=== PATIENT | male | born 1985 | race Caucasian/White ===

== ENCOUNTER 2021-09-14 07:05 | Day surgery (SDC) | payer OTHER ==
[2021-09-13 14:02] LABS: Absolute Lymphocytes (CBC) 2.4 K/uL (0.7-4.9); Hematocrit 40.9 % (39.6-49.0); Lymphocytes % 39.1 % (15.3-44.8); MPV 7.1 fL (7.6-11.3); RBC Red Blood Cell Count 4.91 M/uL (4.33-5.43)
[2021-09-13 14:12] LABS: BUN Blood Urea Nitrogen 10 mg/dL (7-18); Bicarbonate 27 mmol/L (21-32); Glucose Level 118 mg/dL (74-106); Potassium 3.4 mmol/L (3.5-5.1); Sodium Level 140 mmol/L (136-145)
[2021-09-14] MEDS ORDERED: CEFAZOLIN SODIUM 1 GM/VIAL ONE (07:35)
[2021-09-14] MEDS ORDERED: FENTANYL CITR 100 MCG/2 ML ONE (08:10)
[2021-09-14] MEDS ORDERED: propofoL 200 MG/20 ML VIAL IV ONE (08:11)
[2021-09-14] MEDS ORDERED: LIDOCAINE 1% MPF 5 ML VIAL ONE (08:12)
[2021-09-14] MEDS ORDERED: MIDAZOLAM HCL 2 MG/2 ML INJ ONE (08:12)
[2021-09-14] MEDS ORDERED: ROCURONIUM 50 MG/5 ML VIAL IV ONE (08:13)
[2021-09-14] MEDS ORDERED: ONDANSETRON 4 MG/2 ML VIAL ONE ×2 (08:13→08:54)
[2021-09-14] MEDS ORDERED: BUPIVACAINE 0.5% PF 10 ML VIAL ONE ×2 (08:26→08:55)
[2021-09-14] MEDS: Ringers Lactate 1,000 ML IV ONE ×2 (08:31→09:02)
[2021-09-14] MEDS ORDERED: dexAMETHasone 10 MG/ML VIAL ONE (08:54)
[2021-09-14] MEDS ORDERED: KETOROLAC 30 MG/ML INJ ONE (08:54)
[2021-09-14] MEDS ORDERED: Ringers Lactate 1,000 ML IV ONE (09:11)
--- NOTE | 2021-09-14 09:13 | P.BOP ---
Preoperative diagnosis: incarcerated tender umbilical hernia Postoperative diagnosis: same Primary procedure: Laparoscopic repair of incarcerated tender umbilical hernia with mesh Counterperson: NICHOLAS OLIVAS (AGILE TESTER) Estimated blood loss: <10cc Specimen: sac Findings: as above Anesthesia: General Implants: ventralex Fluids & blood products: no blood Transferred to: Recovery Room Condition: Good
[2021-09-14] MEDS ORDERED: NEOSTIGMINE 1 MG/ML -5 ML ONE (09:17)
[2021-09-14] MEDS ORDERED: GLYCOPYRROLATE 0.2 MG/ML SYR ONE (09:17)
[2021-09-14] MEDS: HYDROMORPHONE HCL 1 MG/ML INJ ONE ×2 (09:55→10:02)
[2021-09-14] MEDS ORDERED: HYDROCODONE/APAP 5/325 MG TAB ONE (10:44)
[2021-09-14 12:35] VITALS: BP 116/77
[2021-09-14 12:37] VITALS: TEMP 97.1; O2SAT 97
--- NOTE | 2021-09-14 21:36 | OP ---
Date of Procedure: 09/14/2021 Surgeon: Julius Cook MD Press Worker Helper: Lauren Perez. Preoperative Diagnosis: Incarcerated tender umbilical hernia. Postoperative Diagnosis: Incarcerated tender umbilical hernia. Procedure: Laparoscopic repair of incarcerated tender umbilical hernia with mesh. Estimated Blood Loss: Less than 10 mL. Specimen: Hernia sac. Anesthesia: General plus local. Implant: Ventralex mesh. Complications: None. Findings: The patient has incarcerated umbilical hernia with omentum. Indication: This is a case of a -[id number]-[id number] patient, who comes to us with a tender umbilical hernia. The benefits, alternatives, and risks of repair were fully explained, which include, but no t limited to, infection, bleeding, damage to adjacent structures, anesthesia complication, recurrence , GA, and even . He also understands this may not relieve his symptoms. He might need more chicho n one surgical intervention. He also understands we may use mesh in that region with pros and cons o f mesh discussed with the patient. All the questions answered to his satisfaction. He signed a cons ent. The patient understands the importance of no heavy lifting and also losing some weight. Description Of Procedure: The patient was brought to the operating room and placed in supine positio n. Anesthesia was done without complication. Abdominal area was prepped and draped in sterile fashi on. Local anesthesia was applied after time-out followed by incision in the periumbilical region. I ncision was carried down until we find the hernia sac. We were trying to use the hernia sac to relea se some of the incarcerated omentum. We were releasing some adhesions from the hernia sac and we wer e able to reduce the omentum after fully inspecting to make sure there was no necrosis and make sure there was no bleeding. Hernia sac was removed. We took advantage of that area to put a Markus troca r coming through it. That allowed me to obtain pneumoperitoneum. Then, we put 5 mm trocars in each side of the abdomen, changed the camera to a 5 mm, and then we put the cameras through the 5 mm troca r to see the midline incision. We noted the fascial edges reinforcement, so we put probably #1 a fig [id number] fashion multiple times. We also noticed that in order for this to be less chance of rec urrence due to the fascia condition, I believe he will benefit from an intraperitoneal mesh, so we pu t a Ventralex mesh in that area through the umbilical incision, bring the straps up, and through a 5 mm trocar, we captured and secured the mesh in place circumferentially to diminish any chance of any bowel trying to sneak in. Once we have that, we proceeded to then tie the stitches on the periumbili ana region and we noticed we have a good air and water seal. We looked at the area of the mesh once again, looks nice and flat against the peritoneum, once again circumferential multiple capture a fixa tion device. At that moment, I proceeded then to deflate pneumoperitoneum, removed the trocars, and then closed the subcutaneous tissue with 3-0 chromic and Steri-Strips on top. The patient tolerated the procedure well. The patient was sent to Recovery in stable condition. Disposition: Home. Activity: As tolerated. No heavy lifting. Followup: Follow up in my office in 1 week, call for appointment [phone]. Keep area dry for 48 debora rs and then may shower. Keep Steri-Strip intact. KVNG/SRINIVASAN Voice ID: [id number] Report ID: [id number]
== END 2021-09-14 11:15 | disposition home or self-care (01) ==
LOC: OR 07:05
PROVIDERS: ATTEND Surgery
PROC: 0WUF4JZ Supplement Abdominal Wall with Synthetic Substitute, Percutaneous Endoscopic Approach (ICD-10-PCS; principal; 2021-09-14 08:30)
DX: K42.0 Umbilical hernia with obstruction, without gangrene (principal); Z20.822 Contact with and (suspected) exposure to COVID-19
CPT/HCPCS: 85025; 80048; 36415; 88302; 49653; U0003; J2704; J2250; J3010; J1100; J1170; J2710; J7120 ×2; J2405 ×2; J0690